=== PATIENT | female | born 1985 | race Caucasian/White ===

== ENCOUNTER → 2018-08-17 | Outpatient (CLI) | payer MEDICARE, OTHER ==
--- NOTE | 2018-08-17 10:14 | US ---
EXAMINATION TYPE: US abdomen complete DATE OF EXAM: 08/17/2018 COMPARISON: NONE CLINICAL HISTORY: R16.1 Splenomegaly. Abnormal labs, splenomegaly, GB removed EXAM MEASUREMENTS: Liver Length: 18.0 cm CBD: 0.4 cm CHD: 0.5 cm Spleen: 10.9 cm Right Kidney: 10.0 x 4.3 x 3.9 cm Left Kidney: 10.0 x 4.2 x 4.5 cm Pancreas: wnl Liver: Prominent size although homogeneous Gallbladder: Surgically absent Evidence for sonographic Pena's sign: neg CBD: wnl CHD: wnl Spleen: wnl Right Kidney: wnl Left Kidney: wnl Upper IVC: wnl Abd Aorta: No AAA visualized The liver is homogenous. The intrahepatic portion of the IVC and proximal abdominal aorta are within normal limits. Common bile duct is unremarkable. The visualized portions of the pancreas are homog enous. The spleen is unremarkable. Kidneys are symmetric and free of hydronephrosis. No renal lesi ons are seen. IMPRESSION: No sonographic evidence of splenomegaly. Status post cholecystectomy otherwise unremarkab le abdominal ultrasound.
--- NOTE | 2018-08-17 10:22 | XR ---
EXAMINATION TYPE: XR chest 2V DATE OF EXAM: 08/17/2018 COMPARISON: 08/05/1715 HISTORY: Cough and shortness of breath TECHNIQUE: Frontal and lateral views of the chest are obtained. FINDINGS: There is no focal air space opacity, pleural effusion, or pneumothorax seen. The cardiac silhouette size is within normal limits. The osseous structures are intact. IMPRESSION: No acute cardiopulmonary process.
== END ==
LOC: RADUSWWP 09:06
PROVIDERS: ATTEND Internal Medicine Hematology & Oncology
DX: G43.909 Migraine, unspecified, not intractable, without status migrainosus (principal); R06.02 Shortness of breath; M12.9 Arthropathy, unspecified; Z90.49 Acquired absence of other specified parts of digestive tract; Z71.3 Dietary counseling and surveillance
CPT/HCPCS: 71046; 76700

== ENCOUNTER → 2019-04-21 | Outpatient (CLI) | payer MEDICARE, OTHER ==
[2019-04-22 12:15] LABS: Celery IgE <0.10 kU/L (<0.10); Celery IgE Class CLASS 0; Chicken IgE Class CLASS 0; Latex IgE Class CLASS 0
[2019-04-22 12:16] LABS: Alt. alternata IgE Class CLASS 0; Alternaria alternata IgE <0.10 kU/L (<0.10); Asperg. fumagatus IgE <0.10 kU/L (<0.10); Asperg. fumagatus IgE Class CLASS 0; Aureo. pullulans IgE <0.10 kU/L (<0.10); Aureo. pullulans IgE Class CLASS 0; Birch(Com.Silvr) IgE <0.10 kU/L (<0.10); Birch(Com.Silvr) IgE Class CLASS 0; Candida albicans IgE Class CLASS 0; Cat Epith & Dander IgE <0.10 kU/L (<0.10); Cat Epith & Dander IgE Class CLASS 0; Clad herbarum IgE <0.10 kU/L (<0.10); Clad herbarum IgE Class CLASS 0; Cockroach IgE <0.10 kU/L (<0.10); Com. Pigweed IgE <0.10 kU/L (<0.10); Com. Pigweed IgE Class CLASS 0; Cottonwood IgE <0.10 kU/L (<0.10); Cow's Milk IgE Class CLASS 0; Dermato. Pteronyssinus Class CLASS 0; Dermato. Pteronyssinus IgE <0.10 kU/L (<0.10); Dermato. farinae IgE <0.10 kU/L (<0.10); Dermato. farinae IgE Class CLASS 0; Dog Dander IgE <0.10 kU/L (<0.10); Egg White IgE <0.10 kU/L (<0.10); English Plantain IgE Class CLASS 0; Epicoccum purpurascens Class CLASS 0; Epicoccum purpurascens IgE <0.10 kU/L (<0.10); Johnson Grass IgE Class CLASS 0; Lamb's Quarter IgE <0.10 kU/L (<0.10); Lamb's Quarter IgE Class CLASS 0; Maple (Box Elder) IgE <0.10 kU/L (<0.10); Maple (Box Elder) IgE Class CLASS 0; Mucor racemosus IgE <0.10 kU/L (<0.10); Mucor racemosus IgE Class CLASS 0; Oak IgE <0.10 kU/L (<0.10); Peanut IgE <0.10 kU/L (<0.10); Potato IgE <0.10 kU/L (<0.10); Potato IgE Class CLASS 0; Rhizopus nigricans IgE <0.10 kU/L (<0.10); S.rostrata/Helminth Class CLASS 0; S.rostrata/Helminth IgE <0.10 kU/L (<0.10); Soybean IgE <0.10 kU/L (<0.10); Sycamore(Mpl.Lf) IgE <0.10 kU/L (<0.10); Timothy Grass IgE <0.10 kU/L (<0.10); Walnut Tree IgE <0.10 kU/L (<0.10); Walnut Tree IgE Class CLASS 0; White Ash IgE Class CLASS 0
== END | disposition home or self-care (01) ==
LOC: LABWHC1 15:56
PROVIDERS: ATTEND Otolaryngology
DX: L50.0 Allergic urticaria (principal)
CPT/HCPCS: 36415; 86003

== ENCOUNTER 2022-03-16 10:13 | Emergency (ER) | payer MEDICARE, OTHER ==
[2022-03-16 10:18] VITALS: TEMP 98.4
[2022-03-16] MEDS ORDERED: KETOROLAC 15 MG/ML 1 ML VIAL IM STA (10:49)
[2022-03-16] MEDS ORDERED: HYDROmorphone 0.5 MG/0.5 ML SYRINGE IM STA (10:49)
[2022-03-16] MEDS ORDERED: ONDANSETRON 4 MG/2 ML VIAL IVP STA ×2 (10:55→12:37)
[2022-03-16] MEDS ORDERED: KETOROLAC 15 MG/ML 1 ML VIAL IVP STA (10:56)
[2022-03-16] MEDS ORDERED: HYDROmorphone 0.5 MG/0.5 ML SYRINGE IVP STA (10:56)
--- NOTE | 2022-03-16 11:10 | ED ---
ENT HPI - General Chief complaint: Recheck/Abnormal Lab/Rx Stated complaint: Dental/Oral Pain Time Seen by Provider: 03/16/22 10:39 Source: patient, RN notes reviewed Mode of arrival: ambulatory Limitations: no limitations - History of Present Illness Initial comments: This is a 37-year-old female who presents to the emergency department for oral pain. States that 4 days ago, she had all of her teeth pulled and was only given a prescription for ibuprofen. This has not been managing her pain and she has been unable to sleep. Her mother is with her, who states that she has been trying to help her with her pain and explore other [id number] options, however she has not found anything that helps. She has not been able to get any stronger pain medication from the dentist. Patient is very tearful in the examination room and states that the pain is moving into her sinuses and jaw. She is also having a difficult time speaking due to the swelling. The dentist did put her on a course of antibiotics with the Motrin. The pain and swelling is also causing her to have repeated vomiting. The dentist who removed her teeth is located in [place], however she does have a follow-up appointment with her local dentist next week. Denies any fevers, chills, sore throat, cough, dyspnea, chest pain, palpitations, abdominal pain, nausea, diarrhea, back pain, or headaches. MD complaint: other (Oral pain) Onset/Timin -: days(s) - Related Data Home Medications Medication Instructions Recorded Confirmed Hydroxychloroquine Sulfate 200 mg PO BID 01/23/15 01/19/16 [Plaquenil] Pilocarpine [Salagen] 5 mg PO DAILY 01/23/15 01/19/16 NIFEdipine [Adalat cc] 30 mg PO DAILY 08/12/15 01/19/16 predniSONE [Deltasone] 20 mg PO TID PRN 01/19/16 01/19/16 Previous Rx's Medication Instructions Recorded Famotidine [Pepcid] 20 mg PO DAILY #14 tablet 01/23/15 Ondansetron HCl [Zofran] 4 mg PO Q8HR PRN #10 tab 08/12/15 Amoxicillin 500 mg PO Q8H #21 capsule 01/19/16 Ibuprofen [Motrin] 600 mg PO Q6HR PRN #20 tab 01/19/16 HYDROcodone/APAP 5-325MG [[place] 1 tab PO Q6HR PRN 3 Days #12 tab 03/16/22 5-325] Ondansetron Odt [Zofran Odt] 4 mg PO Q8HR PRN #15 tab 03/16/22 predniSONE 50 mg PO QAM 5 Days #5 tablet 03/16/22 Allergies Allergy/AdvReac Type Severity Reaction Status Date / Time cashew nut Allergy Unknown Verified 01/19/16 17:00 cat dander Allergy Unknown Verified 01/19/16 17:00 celery Allergy Unknown Verified 01/19/16 17:00 chicken derived [Chicken] Allergy Unknown Verified 01/19/16 17:00 Fish Containing Products Allergy Unknown Verified 01/19/16 17:00 [Fish] grass pollen Allergy Unknown Verified 01/19/16 17:00 sulfamethoxazole Allergy Anaphylaxis Verified 03/16/22 10:18 [From Bactrim] tomato Allergy Unknown Verified 01/19/16 17:00 tree and shrub pollen Allergy Unknown Verified 01/19/16 17:00 trimethoprim [From Bactrim] Allergy Anaphylaxis Verified 03/16/22 10:18 walnut Allergy Unknown Verified 01/19/16 17:00 weed pollen Allergy Unknown Verified 01/19/16 17:00 wheat Allergy Unknown Verified 01/19/16 17:00 Review of Systems ROS Statement: Those systems with pertinent positive or pertinent negative responses have been documented in the HPI. ROS Other: All systems not noted in ROS Statement are negative. Past Medical History Additional Past Medical History / Comment(s): lupus; Sjogrens; Raynaud's phenomenon History of Any Multi-Drug Resistant Organisms: None Reported Past Surgical History: Appendectomy, Cholecystectomy, Hysterectomy Additional Past Surgical History / Comment(s): right ovary, Teeth removed. Past Psychological History: Anxiety Smoking Status: Current every day smoker Past Alcohol Use History: Occasional Past Drug Use History: None Reported General Exam Limitations: no limitations General appearance: alert, in distress Head exam: Present: atraumatic, normocephalic, normal inspection ENT exam: Present: other (Absence of all teeth. Swelling and tenderness to both cheeks.) Respiratory exam: Present: normal lung sounds bilaterally. Absent: respiratory distress, wheezes, rales, rhonchi, stridor Cardiovascular Exam: Present: regular rate, normal rhythm, normal heart sounds. Absent: systolic murmur, diastolic murmur, rubs, gallop, clicks Neurological exam: Present: alert, oriented X3, CN II-XII intact Skin exam: Present: warm, dry, intact, normal color. Absent: rash Course Vital Signs 03/16/22 03/16/22 10:14 13:01 Temperature 98.4 F Pulse Rate 107 H 84 Respiratory 22 18 Rate Blood Pressure 127/84 128/80 O2 Sat by Pulse 99 99 Oximetry Medical Decision Making - Medical Decision Making This is a 37-year-old female who presents to the emergency department for oral pain. Patient was given IV Dilaudid, Toradol, and Zofran. Patient states that her pain resolved almost immediately, and she was sleeping comfortably upon reevaluation. Her mother states that this is the first time that she has slept in days. Prescription for prednisone, zofran, and [place] provided. She is instructed to avoid taking ibuprofen with the prednisone, however she should take this with Tylenol. The [place] should be taken sparingly when her pain is the most severe. She is instructed to continue using the mouthwash and antibiotics as prescribed from the dentist. Also advised she follow-up with the dentist as scheduled next week. Return precautions reviewed in depth, the patient is instructed to return to the emergency department with any new, worsening, or concerning symptoms. Patient verbalized understanding. This case was discussed in detail with the attending ED physician. Presentation, findings, and treatment plan discussed in detail as well. Disposition Clinical Impression: Pain following oral surgery Disposition: HOME SELF-CARE Additional Instructions: Return to the emergency department with any new, worsening, or concerning symptoms. Take the prednisone as prescribed for 5 days and take this with Tylenol. Do not take ibuprofen or other anti-inflammatories when taking the prednisone. Take the [place] sparingly when your pain is the most severe. The Zofran can be taken up to every 8 hours as needed for nausea and vomiting. Also try icing your cheeks. Follow-up with your dentist as scheduled. Prescriptions: HYDROcodone/APAP 5-325MG [[place] 5-325] 1 tab PO Q6HR PRN 3 Days #12 tab PRN Reason: Pain predniSONE 50 mg PO QAM 5 Days #5 tablet Ondansetron Odt [Zofran Odt] 4 mg PO Q8HR PRN #15 tab PRN Reason: Nausea And Vomiting Is patient prescribed a controlled substance at d/c from ED?: Yes When asked, does pt state using other controlled substances?: No If prescribed controlled substance>3 days was MAPS reviewed?: Prescribed <3 Days Referrals: Batsheva Pozo MD [Primary Care Provider] - 1-2 days
[2022-03-16 13:18] VITALS: BP 128/80; PULSE 84; RESP 18
== END 2022-03-16 13:01 | disposition home or self-care (01) ==
LOC: EC 10:13
DX: Z48.814 Encounter for surgical aftercare following surgery on the teeth or oral cavity (principal); F17.200 Nicotine dependence, unspecified, uncomplicated; Z91.09 Other allergy status, other than to drugs and biological substances; Z91.018 Allergy to other foods; Z88.8 Allergy status to other drugs, medicaments and biological substances
CPT/HCPCS: 99283; 96374; 96375; 96376; J2405; J1885; J1170

== ENCOUNTER → 2022-10-02 | Outpatient (CLI) | payer MEDICARE, OTHER ==
--- NOTE | 2022-10-02 16:08 | MM ---
Reason for Exam: Screening (asymptomatic). Patient History: Menarche at age 10. First Full-Term at age 20. Left ovary removed at age 30. Right ovary removed at age 30. Hysterectomy at age 30. Maternal aunt had breast cancer under age 50. Maternal aunt had breast cancer, age 53. Maternal cousin had breast cancer, age 22. Mother had breast cancer, age 49. Risk Values: Clarice 5 year model risk: 0.7%. NCI Lifetime model risk: 19.8%. Tissue Density: There are scattered fibroglandular densities. Findings: Analyzed By CAD. There is no suspicious group of microcalcifications or new suspicious mass in either breast. Overall Assessment: Negative, BI-RAD 1 Management: Screening Mammogram of both breasts in 1 year. A clinical breast exam by your physician is recommended on an annual basis and results should be correlated with mammographic findings. Electronically signed and approved by: Jose J Caicedo D.O.
== END | disposition home or self-care (01) ==
LOC: RADMAMWWP 14:34
PROVIDERS: ATTEND Internal Medicine
DX: Z12.31 Encounter for screening mammogram for malignant neoplasm of breast (principal); Z80.3 Family history of malignant neoplasm of breast
CPT/HCPCS: 77063; 77067

== ENCOUNTER 2022-12-17 12:52 | Emergency (ER) | payer MEDICARE, OTHER ==
[2022-12-17] MEDS ORDERED: PANTOPRAZOLE 40 MG/10 ML VIAL IVP STA (13:04)
[2022-12-17] MEDS ORDERED: SODIUM CHLORIDE 0.9% 1,000 ML IV STA ×2 (13:04)
[2022-12-17] MEDS ORDERED: ONDANSETRON 4 MG/2 ML VIAL IVP STA (13:04)
--- NOTE | 2022-12-17 13:08 | ED ---
Abdominal Pain HPI - General Chief Complaint: Abdominal Pain Stated Complaint: Abd Pain Time Seen by Provider: 12/17/22 13:03 Source: patient, RN notes reviewed, old records reviewed Mode of arrival: wheelchair Limitations: no limitations - History of Present Illness Initial Comments: This is a 37-year-old female to the ER today. She presents today for evaluation of abdominal pain severe. Patient concern for pancreatitis. Patient does have history of gallbladder removal. No other abdominal surgery has history of nausea and abdominal pain and diarrhea. MD Complaint: abdominal pain -: hour(s) Location: epigastric, suprapubic Radiation: epigastric, suprapubic Migration to: no migration Severity: severe Severity scale (1-10): 10 Quality: cramping, aching Improves With: eating Worsens With: nothing Associated Symptoms: denies other symptoms Treatments Prior to Arrival: other (0) - Related Data Home Medications Medication Instructions Recorded Confirmed Hydroxychloroquine Sulfate 200 mg PO BID 01/23/15 01/19/16 [Plaquenil] Pilocarpine [Salagen] 5 mg PO DAILY 01/23/15 01/19/16 NIFEdipine [Adalat cc] 30 mg PO DAILY 08/12/15 01/19/16 predniSONE [Deltasone] 20 mg PO TID PRN 01/19/16 01/19/16 Previous Rx's Medication Instructions Recorded Famotidine [Pepcid] 20 mg PO DAILY #14 tablet 01/23/15 Ondansetron HCl [Zofran] 4 mg PO Q8HR PRN #10 tab 08/12/15 Amoxicillin 500 mg PO Q8H #21 capsule 01/19/16 Ibuprofen [Motrin] 600 mg PO Q6HR PRN #20 tab 01/19/16 HYDROcodone/APAP 5-325MG [[place] 1 tab PO Q6HR PRN 3 Days #12 tab 03/16/22 5-325] Ondansetron Odt [Zofran Odt] 4 mg PO Q8HR PRN #15 tab 03/16/22 predniSONE 50 mg PO QAM 5 Days #5 tablet 03/16/22 Allergies Allergy/AdvReac Type Severity Reaction Status Date / Time cashew nut Allergy Unknown Verified 01/19/16 17:00 cat dander Allergy Unknown Verified 01/19/16 17:00 celery Allergy Unknown Verified 01/19/16 17:00 chicken derived [Chicken] Allergy Unknown Verified 01/19/16 17:00 Fish Containing Products Allergy Unknown Verified 01/19/16 17:00 [Fish] grass pollen Allergy Unknown Verified 01/19/16 17:00 sulfamethoxazole Allergy Anaphylaxis Verified 03/16/22 10:18 [From Bactrim] tomato Allergy Unknown Verified 01/19/16 17:00 tree and shrub pollen Allergy Unknown Verified 01/19/16 17:00 trimethoprim [From Bactrim] Allergy Anaphylaxis Verified 03/16/22 10:18 walnut Allergy Unknown Verified 01/19/16 17:00 weed pollen Allergy Unknown Verified 01/19/16 17:00 wheat Allergy Unknown Verified 01/19/16 17:00 Review of Systems ROS Statement: Those systems with pertinent positive or pertinent negative responses have been documented in the HPI. ROS Other: All systems not noted in ROS Statement are negative. Past Medical History Past Medical History: Hyperlipidemia Additional Past Medical History / Comment(s): lupus; Sjogrens; Raynaud's phenomenon, kidney stones History of Any Multi-Drug Resistant Organisms: MRSA Date of last positivie culture/infection: 2017 MDRO Source:: back/shoulder Past Surgical History: Appendectomy, Cholecystectomy, Hysterectomy Additional Past Surgical History / Comment(s): right ovary, Teeth removed. abdominal adhesions multiple , c section X3, sinus Past Psychological History: Anxiety Smoking Status: Current every day smoker Past Alcohol Use History: None Reported Past Drug Use History: Marijuana General Exam Limitations: no limitations General appearance: alert, in no apparent distress Head exam: Present: atraumatic, normocephalic, normal inspection Eye exam: Present: normal appearance, PERRL, EOMI. Absent: scleral icterus, conjunctival injection, periorbital swelling ENT exam: Present: normal exam, mucous membranes moist Neck exam: Present: normal inspection. Absent: tenderness, meningismus, lymphadenopathy Respiratory exam: Present: normal lung sounds bilaterally. Absent: respiratory distress, wheezes, rales, rhonchi, stridor Cardiovascular Exam: Present: regular rate, normal rhythm, normal heart sounds. Absent: systolic murmur, diastolic murmur, rubs, gallop, clicks GI/Abdominal exam: Present: soft, normal bowel sounds. Absent: distended, tenderness, guarding, rebound, rigid Extremities exam: Present: normal inspection, full ROM, normal capillary refill. Absent: tenderness, pedal edema, joint swelling, calf tenderness Back exam: Present: normal inspection Neurological exam: Present: alert, oriented X3, CN II-XII intact Psychiatric exam: Present: normal affect, normal mood Skin exam: Present: warm, dry, intact, normal color. Absent: rash Course Vital Signs 12/17/22 12/17/22 12/17/22 12:55 14:10 17:29 Temperature 96.9 F L 97.5 F L 98.4 F Pulse Rate 121 H 76 76 Respiratory 28 H 16 16 Rate Blood Pressure 135/88 131/84 107/66 O2 Sat by Pulse 96 97 98 Oximetry 12/17/22 18:25 Temperature 98.4 F Pulse Rate 72 Respiratory 16 Rate Blood Pressure 105/67 O2 Sat by Pulse 98 Oximetry - Reevaluation(s) Reevaluation #1: 12/17/22 15:32 Medical records reviewed Reevaluation #2: 12/17/22 15:32 Patient symptoms are improved Reevaluation #3: Patient informed results questions answered Reevaluation #4: 12/17/22 15:32 Was pt. sent in by a medical professional or institution? @ -no Did you speak to anyone other than the patient for history? @ -no Did you review nursing and triage notes? @ -agree Were old charts reviewed? @ -yes Differential Diagnosis? @ -prior EKG interpreted by me (3pts min.)? @ -no X-rays interpreted by me (1pt min.)? @ -no CT interpreted by me (1pt min.)? @ -yes U/S interpreted by me (1pt. min.)? @ -no What testing was considered but not performed? (CT, X-rays, U/S, labs)? Why? @ -no What meds were considered but not given? Why? @ -no Did you discuss the management of the patient with other professionals? @ -no Did you reconcile home meds? @ -no Was smoking cessation discussed for >3mins.? @ -no Was critical care preformed (if so, how long)? @ -no Were there social determinants of health that impacted care today? How? (Homelessness, low income, unemployed, alcoholism, drug addiction, transportation, low edu. Level, literacy, decrease access to med. care, halfway, rehab)? @ -no Was there de-escalation of care discussed even if they declined? (Discuss DNR or withdrawal of care, Hospice)? @ -no What co-morbidities impacted this encounter? (DM, HTN, Smoking, COPD, CAD, Cancer, CVA, Hep., AIDS, mental health diagnosis, sleep apnea, morbid obesity)? @ -none Was patient admitted / discharged? @ -37-year-old female with abdominal pain control here in the emergency department with concern for pancreatitis evaluated as normal severe pain computed tomography scan showing no significant cause of pain, nausea vomiting diarrhea patient will be given symptomatic therapy can be discharged home Discharge Undiagnosed new problem with uncertain prognosis? @ -no Drug Therapy requiring intensive monitoring for toxicity (Heparin, Nitro, Insulin, Cardizem)? @ -no Were any procedures done? @ -no Diagnosis/symptom? @ -Abdominal pain, nausea vomiting, gastroenteritis Acute, or Chronic, or Acute on Chronic? @ -acute Uncomplicated (without systemic symptoms) or Complicated (systemic symptoms)? @ -complicated Side effects of treatment? @ -no Exacerbation, Progression, or Severe Exacerbation] @ -no Poses a threat to life or bodily function? @ -no Reevaluation #5: 12/17/22 15:32 Differential Abdominal Pain Women: Appendicitis, Cholecystitis, diverticulosis, ischemic bowel, pancreatitis, hepatitis, UTI, gastroenteritis, AAA, incarcerated hernia, bowel obstruction, constipation, inflammatory bowel, hepatitis, peptic ulcer disease, splenic infarction, perforated viscus, vulvitis, ovarian torsion, PID, kidney stone, placenta abruption, this is not meant to be an all-inclusive list Medical Decision Making - Medical Decision Making 37-year-old female with abdominal pain control here in the emergency department with concern for pancreatitis evaluated as normal severe pain computed tomography scan showing no significant cause of pain, nausea vomiting diarrhea patient will be given symptomatic therapy can be discharged home - Lab Data Result diagrams: 12/17/22 13:11 12/17/22 13:11 Lab Results 12/17/22 12/17/22 12/17/22 Range/Units 13:11 13:11 13:11 WBC 24.4 H (3.8-10.6) k/uL RBC 5.90 H (3.80-5.40) m/uL Hgb 17.1 H (11.4-16.0) gm/dL Hct 48.0 H (34.0-46.0) % MCV 81.3 (80.0-100.0) fL MCH 29.0 (25.0-35.0) pg MCHC 35.7 (31.0-37.0) g/dL RDW 13.2 (11.5-15.5) % Plt Count 471 H (150-450) k/uL MPV 7.4 Neutrophils % 77 % Lymphocytes % 15 % Monocytes % 5 % Eosinophils % 2 % Basophils % 0 % Neutrophils # 18.7 H (1.3-7.7) k/uL Lymphocytes # 3.6 (1.0-4.8) k/uL Monocytes # 1.2 H (0-1.0) k/uL Eosinophils # 0.5 (0-0.7) k/uL Basophils # 0.1 (0-0.2) k/uL Sodium 137 (137-145) mmol/L Potassium 4.9 (3.5-5.1) mmol/L Chloride 106 (98-107) mmol/L Carbon Dioxide 14 L (22-30) mmol/L Anion Gap 17 mmol/L BUN 15 (7-17) mg/dL Creatinine 0.92 (0.52-1.04) mg/dL Est GFR (CKD-EPI)AfAm >90 (>60 ml/min/1.73 sqM) Est GFR (CKD-EPI)NonAf 81 (>60 ml/min/1.73 sqM) Glucose 140 H (74-99) mg/dL Lactic Ac Sepsis Rflx Plasma Lactic Acid Yusuf 3.0 H* (0.7-2.0) mmol/L Calcium 10.2 (8.4-10.2) mg/dL Total Bilirubin 0.7 (0.2-1.3) mg/dL AST 28 (14-36) U/L ALT 25 (4-34) U/L Alkaline Phosphatase 131 H (38-126) U/L Troponin I (0.000-0.034) ng/mL Total Protein 8.4 H (6.3-8.2) g/dL Albumin 5.0 (3.5-5.0) g/dL Amylase 57 (30-110) U/L Lipase 97 (23-300) U/L 07/04/23 07/04/23 07/04/23 Range/Units 13:11 14:15 16:15 WBC (3.8-10.6) k/uL RBC (3.80-5.40) m/uL Hgb (11.4-16.0) gm/dL Hct (34.0-46.0) % MCV (80.0-100.0) fL MCH (25.0-35.0) pg MCHC (31.0-37.0) g/dL RDW (11.5-15.5) % Plt Count (150-450) k/uL MPV Neutrophils % % Lymphocytes % % Monocytes % % Eosinophils % % Basophils % % Neutrophils # (1.3-7.7) k/uL Lymphocytes # (1.0-4.8) k/uL Monocytes # (0-1.0) k/uL Eosinophils # (0-0.7) k/uL Basophils # (0-0.2) k/uL Sodium (137-145) mmol/L Potassium (3.5-5.1) mmol/L Chloride (98-107) mmol/L Carbon Dioxide (22-30) mmol/L Anion Gap mmol/L BUN (7-17) mg/dL Creatinine (0.52-1.04) mg/dL Est GFR (CKD-EPI)AfAm (>60 ml/min/1.73 sqM) Est GFR (CKD-EPI)NonAf (>60 ml/min/1.73 sqM) Glucose (74-99) mg/dL Lactic Ac Sepsis Rflx Y Plasma Lactic Acid Yusuf 1.0 (0.7-2.0) mmol/L Calcium (8.4-10.2) mg/dL Total Bilirubin (0.2-1.3) mg/dL AST (14-36) U/L ALT (4-34) U/L Alkaline Phosphatase (38-126) U/L Troponin I <0.012 (0.000-0.034) ng/mL Total Protein (6.3-8.2) g/dL Albumin (3.5-5.0) g/dL Amylase (30-110) U/L Lipase (23-300) U/L - Radiology Data Radiology results: report reviewed (CT head and pelvis negative for acute disease), image reviewed Disposition Clinical Impression: Abdominal pain, Gastroenteritis Disposition: HOME SELF-CARE Condition: Good Instructions (If sedation given, give patient instructions): Gastroenteritis (ED) Is patient prescribed a controlled substance at d/c from ED?: No Referrals: Arsenio Beltran MD [Primary Care Provider] - 1-2 days Time of Disposition: 18:00
[2022-12-17 13:42] LABS: Basophils # (A) 0.1 k/uL (0-0.2); Basophils % (A) 0 %; Eosinophils # (A) 0.5 k/uL (0-0.7); Eosinophils % (A) 2 %; HGB 17.1 gm/dL (11.4-16.0); Lymphocytes # (A) 3.6 k/uL (1.0-4.8); Lymphocytes % (A) 15 %; MCHC 35.7 g/dL (31.0-37.0); MCV 81.3 fL (80.0-100.0); Mean Platelet Volume 7.4; Monocytes # (A) 1.2 k/uL (0-1.0); Monocytes % (A) 5 %; Neutrophils # (A) 18.7 k/uL (1.3-7.7); Neutrophils % (A) 77 %; Platelet Count 471 k/uL (150-450); RDW 13.2 % (11.5-15.5); WBC 24.4 k/uL (3.8-10.6)
[2022-12-17 14:00] LABS: ALT 25 U/L (4-34); AST 28 U/L (14-36); African American GFR (CKD) >90 (>60 ml/min/1.73 sqM); Alkaline Phosphatase 131 U/L (38-126); Amylase 57 U/L (30-110); Anion Gap 17 mmol/L; Blood Urea Nitrogen 15 mg/dL (7-17); Calcium 10.2 mg/dL (8.4-10.2); Carbon Dioxide 14 mmol/L (22-30); Chloride 106 mmol/L (98-107); Glucose 140 mg/dL (74-99); Lipase 97 U/L (23-300); Non-African American GFR(CKD) 81 (>60 ml/min/1.73 sqM); Potassium 4.9 mmol/L (3.5-5.1); Sodium 137 mmol/L (137-145); Total Bilirubin 0.7 mg/dL (0.2-1.3); Total Protein 8.4 g/dL (6.3-8.2)
[2022-12-17 14:12] VITALS: RESP 16
[2022-12-17] MEDS ORDERED: PROCHLORPERAZINE INJ 10 MG/2 ML VIAL IVP STA (14:14)
[2022-12-17] MEDS ORDERED: MORPHINE SULFATE 4 MG/ML SYRINGE IVP STA (14:14)
--- NOTE | 2022-12-17 17:08 | CT ---
EXAMINATION TYPE: CT abdomen pelvis wo con DATE OF EXAM: 12/17/2022 COMPARISON: None INDICATION: Abdominal pain, N/V/D vomiting green bile. DLP: 970.9 mGycm, Automated exposure control for dose reduction was used. CONTRAST: 0 mL of Isovue 300. Study performed without Oral Contrast TECHNIQUE: Axial images were obtained from above the diaphragm to the pubic rami in the axial plane a t 5 mm thick sections. Reconstructed images are reviewed on the computer in the coronal plane. FINDINGS: Limited CT sections are obtained the lung bases. The lung bases are clear. CT ABDOMEN: Liver: Normal Spleen: Normal Pancreas: Normal Adrenal glands: Left adrenal gland is thickened at 1.8 cm. Right adrenal gland appears normal. Gallbladder: Surgically absent. Kidneys: No masses are evident. No hydronephrosis is present. No cysts are present. No renal stone s are evident. Aorta: Normal Inferior vena cava: Normal. CT PELVIS: Distal small bowel loops are slightly prominent with some fluid. Correlate for ileus. Some gastroente ritis potentially could be within the differential. Findings do not appear obstructed. The more proxi mal small bowel loops are nondilated. Colon appears otherwise normal This study is a lateral contrast limiting bowel evaluation. Appendix: Not identified. No dilated tubular structure or inflammatory changes are evident. Urinary bladder: Normal. Genitourinary structures: Uterus and ovaries are not identified. Osseous structures: No suspicious lytic or sclerotic lesions. IMPRESSIONS: 1. Some mild fluid-filled distal small bowel loops. Correlate for mild ileus versus gastroenteritis. Findings are nonspecific. 2. Thickening of the left adrenal gland and 1.8 cm.
[2022-12-17 17:31] VITALS: TEMP 98.4
[2022-12-17 18:28] VITALS: BP 105/67; PULSE 72
== END 2022-12-17 18:28 | disposition home or self-care (01) ==
LOC: EC 12:52
DX: K52.9 Noninfective gastroenteritis and colitis, unspecified (principal); F17.200 Nicotine dependence, unspecified, uncomplicated; F12.90 Cannabis use, unspecified, uncomplicated; Z88.1 Allergy status to other antibiotic agents; Z88.2 Allergy status to sulfonamides; Z91.018 Allergy to other foods; Z91.013 Allergy to seafood; Z91.048 Other nonmedicinal substance allergy status; Z91.09 Other allergy status, other than to drugs and biological substances; Z90.49 Acquired absence of other specified parts of digestive tract
CPT/HCPCS: 99285; 96374; 96375 ×3; 96361 ×3; 36415; 80053; 82150; 83605; 83690; 84484; 85025; 74176; J2270; J0780; J2405; C9113

== ENCOUNTER → 2023-10-09 | Outpatient (CLI) | payer MEDICARE, OTHER ==
--- NOTE | 2023-10-09 17:27 | CT ---
EXAMINATION TYPE: CT angio chest DATE OF EXAM: 10/09/2023 4:51 PM COMPARISON: 01/23/2015 HISTORY: francesca CT DLP: 338.8 mGycm Automated exposure control for dose reduction was used. CONTRAST: CTA scan of the thorax is performed with IV Contrast, patient injected with 100 mL of Isovue 370, pul monary embolism protocol. 3-D postprocessing was performed.. FINDINGS: There are a few small groundglass subpleural parenchymal opacities in the peripheral right middle lob e otherwise the lungs are clear. There is no pleural effusion, pleural thickening or pneumothorax. The great vessels are normal and there are no filling defects within the pulmonary arterial circulati on to suggest pulmonary embolism. There is no mediastinal, hilar or axillary adenopathy. Limited scanning through the upper abdomen reveals no gross abnormality. No focal osseous lesions are seen. IMPRESSION: 1. No pulmonary embolism. 2. A few small subpleural parenchymal groundglass opacities in the right middle lobe otherwise the shana ngs are clear. 3. No adenopathy, pleural effusion or pneumothorax.
== END | disposition home or self-care (01) ==
LOC: RADCTMAIN 16:12
PROVIDERS: ATTEND Family Medicine
DX: R91.8 Other nonspecific abnormal finding of lung field (principal); R06.09 Other forms of dyspnea
CPT/HCPCS: 71275; Q9967

== ENCOUNTER → 2023-12-09 | Outpatient (CLI) | payer MEDICARE, OTHER | LOC: CPPFTMAIN 16:48 | PROVIDERS: ATTEND Internal Medicine | DX: J98.01 Acute bronchospasm (principal); F17.200 Nicotine dependence, unspecified, uncomplicated; Z91.018 Allergy to other foods; Z91.09 Other allergy status, other than to drugs and biological substances; Z91.014 Allergy to mammalian meats; Z91.013 Allergy to seafood; Z88.2 Allergy status to sulfonamides; Z88.1 Allergy status to other antibiotic agents | CPT/HCPCS: 94060; 94726; 94729 ==